=== PATIENT | male | born 1940 | race Caucasian/White ===

== ENCOUNTER 2016-05-24 16:47 | Inpatient (IN) | payer MEDICARE, BC ==
[~2016-05-24] VITALS: Ht 182.9 cm; Wt 111.6 kg
[~2016-05-24 16:47] MED LIST: AMOX1TAB15 PO; ESCI20TA PO; FENO145T PO; LISI10TA5 PO
[2016-05-24 17:43] LABS: CALCIUM, SERUM 9.2 mg/dL (8.5-10.1); CREATININE 1.5 mg/dL (0.6-1.3); POTASSIUM 4.5 mmol/L (3.5-5.1)
[2016-05-24 17:49] LABS: ALBUMIN 3.9 g/dL (3.4-5.0); BILIRUBIN,DIRECT 0.1 mg/dL (0.0-0.2); BILIRUBIN,TOTAL 0.7 mg/dL (0.2-1.0); INDIRECT BILIRUBIN 0.6 mg/dL (0.0-1.1); TOTAL PROTEIN, SERUM 7.9 g/dL (6.4-8.2)
[2016-05-24 17:58] LABS: BASOPHILS % (AUTO) 0.4 % (0.0-2.0); DIFF TOTAL % 100 %; HEMATOCRIT 49 % (39-51); HEMOGLOBIN 16.3 g/dL (13.5-17.5); LYMPHOCYTES # (AUTO) 0.7 /CMM (0.8-4.8); LYMPHOCYTES % (AUTO) 9.3 % (20.0-44.0); MEAN CORPUSCULAR HEMOGLOBIN 31 PG (26.0-33.0); MEAN CORPUSCULAR HGB CONC 33 g/dl (31.0-36.0); MEAN CORPUSCULAR VOLUME 92 fL (80-96); MONOCYTES # (AUTO) 0.6 /CMM (0.1-1.30); NEUTROPHILS # (AUTO) 6.6 /CMM (1.8-8.9); NEUTROPHILS % (AUTO) 83.3 % (43.0-81.0); PLATELET COUNT (AUTO) 130 /CMM (150-450); RED BLOOD CELL COUNT(AUTO) 5.31 MIL/uL (4.5-6.0); WHITE BLOOD COUNT (AUTO) 7.9 K/uL (4.3-11.0)
[2016-05-24 18:13] LABS: INR 0.98 (0.87-1.13); PROTHROMBIN TIME 10.6 SECS (9.5-12.7)
[2016-05-24] MEDS ORDERED: ONDANSETRON HCL/PF 4 MG/2 ML VIAL ONE (18:47)
[2016-05-24] MEDS ORDERED: MAG HYDROX/AL HYDROX/SIMETH 30 ML UDC ONE (18:47)
[2016-05-24] MEDS ORDERED: BELLADONNA /PHENOBARB 5 ML UDC 5 ML UDC ONE (18:47)
[2016-05-24] MEDS ORDERED: MORPHINE SULFATE INJ 4 MG/ML DISP.SYRIN ONE (18:47)
[2016-05-24] MEDS ORDERED: LIDOCAINE VISCOUS 2% UD 15 ML UDC ONE (18:47)
[2016-05-24] MEDS ORDERED: IV NS 0.9% 1,000 ML ONE ×2 (18:47→23:37)
[2016-05-24] MEDS ORDERED: IV SET PRIMARY 1 EA INFUS.SET MC ONE (18:47)
[2016-05-24] MEDS ORDERED: LIDOCAINE VISCOUS 2% UD 15 ML UDC MM ONE (19:00)
[2016-05-24] MEDS ORDERED: BELLADONNA /PHENOBARB 5 ML UDC 5 ML UDC PO ONE (19:00)
[2016-05-24] MEDS ORDERED: IV NS 0.9% 1,000 ML BAG IV ONE ×2 (19:00→22:30)
[2016-05-24] MEDS ORDERED: MAG HYDROX/AL HYDROX/SIMETH 30 ML UDC PO ONE (19:00)
[2016-05-24] MEDS ORDERED: ONDANSETRON HCL/PF 4 MG/2 ML VIAL IVP ONE (19:00)
[2016-05-24] MEDS ORDERED: MORPHINE SULFATE INJ 2 MG/ML DISP.SYRIN IV ONE (19:00)
[2016-05-24] MEDS ORDERED: DILTIAZEM HCL 25 MG IV ONE (19:56)
[2016-05-24] MEDS ORDERED: DILTIAZEM HCL 50 MG IV IV ONE (20:00)
[2016-05-24] MEDS ORDERED: MAGNESIUM HYDROXIDE 30 ML UDC PO PRN (21:00)
[2016-05-24] MEDS ORDERED: MAG HYDROX/AL HYDROX/SIMETH 30 ML UDC PO PRN ×2 (21:00→21:15)
[2016-05-24] MEDS ORDERED: ACETAMINOPHEN 325 MG TABLET PO PRN ×2 (21:00→21:15)
[2016-05-24] MEDS ORDERED: Z GUARD REMEDY 2 OZ OINT TP PRN ×2 (21:00→21:15)
[2016-05-24] MEDS ORDERED: HYDROCODONE/APAP 5/325MG 1 EACH TABLET PO PRN ×2 (21:00→21:15)
[2016-05-24] MEDS ORDERED: ONDANSETRON HCL/PF 4 MG/2 ML VIAL IVP PRN ×2 (21:00→21:15)
[2016-05-24] MEDS ORDERED: ZOLPIDEM TARTRATE 5 MG TABLET PO PRN ×2 (21:00→21:15)
[2016-05-24 21:30] VITALS: BP 150/90
[2016-05-24 22:00] VITALS: BP 150/90
[2016-05-24] MEDS ORDERED: LISINOPRIL (10MG) 10 MG TABLET ONE (22:00)
[2016-05-24] MEDS ORDERED: FENOFIBRATE NANOCRYS (145 MG) 145 MG TABLET ONE (22:01)
[2016-05-24] MEDS ORDERED: IV SET PRIMARY PUMP SET 1 EA INFUS.SET MC ONE (23:38)
[2016-05-24] MEDS: DILTIAZEM HCL 30 MG TABLET PO SCH (23:56)
[2016-05-25] VITALS (8 sets, daily range): BP systolic 114–171; BP diastolic 73–91
[2016-05-25] MEDS ORDERED: DILTIAZEM HCL 30 MG TABLET ONE (05:29)
[2016-05-25] MEDS: DILTIAZEM HCL 30 MG TABLET PO SCH (05:47)
[2016-05-25 06:43] LABS: BASOPHILS % (AUTO) 0.3 % (0.0-2.0); DIFF TOTAL % 100 %; HEMATOCRIT 45 % (39-51); HEMOGLOBIN 15.2 g/dL (13.5-17.5); LYMPHOCYTES # (AUTO) 1.1 /CMM (0.8-4.8); LYMPHOCYTES % (AUTO) 13.6 % (20.0-44.0); MEAN CORPUSCULAR HEMOGLOBIN 31 PG (26.0-33.0); MEAN CORPUSCULAR HGB CONC 34 g/dl (31.0-36.0); MEAN CORPUSCULAR VOLUME 93 fL (80-96); MONOCYTES # (AUTO) 0.8 /CMM (0.1-1.30); MONOCYTES % (AUTO) 10.4 % (2.0-12.0); NEUTROPHILS # (AUTO) 5.9 /CMM (1.8-8.9); NEUTROPHILS % (AUTO) 75.7 % (43.0-81.0); PLATELET COUNT (AUTO) 130 /CMM (150-450); RED BLOOD CELL COUNT(AUTO) 4.87 MIL/uL (4.5-6.0); WHITE BLOOD COUNT (AUTO) 7.8 K/uL (4.3-11.0)
[2016-05-25 07:11] LABS: CALCIUM, SERUM 8.4 mg/dL (8.5-10.1); CREATININE 1.3 mg/dL (0.6-1.3)
[2016-05-25] MEDS ORDERED: AMIODARONE 900 MG in IV D5W 500 ML IV PRN (08:00)
[2016-05-25] MEDS ORDERED: AMIODARONE 150 MG in IV D5W 100 ML IV ONE (08:30)
[2016-05-25 08:37] LABS: TROPONIN I < 0.017 ng/mL (0.00-0.056)
[2016-05-25 08:42] LABS: CHOLESTEROL 179 mg/dL (<200); HDL CHOLESTEROL 33 mg/dL (40-60); LDL 136 mg/dL (0-99); THYROID STIMULATING HORMONE 1.156 uIU/mL (0.358-3.74); TRIGLYCERIDES 73 mg/dL (30-150)
[2016-05-25] MEDS ORDERED: IV SET PRIMARY PUMP SET 1 EA INFUS.SET MC ONE (08:47)
[2016-05-25] MEDS ORDERED: SECONDARY IV SET 1 EA INFUS.SET MC ONE (08:47)
[2016-05-25] MEDS ORDERED: AMIODARONE 900 MG in IV D5W 482 ML IV PRN (10:00)
[2016-05-25] MEDS: Magnesium 1GM/D5W 100ML PREMIX 100 ML IV SCH ×2 (10:02→11:20)
[2016-05-25] MEDS: LISINOPRIL (10MG) 10 MG TABLET PO SCH (10:02)
[2016-05-25] MEDS: FENOFIBRATE NANOCRYS (145 MG) 145 MG TABLET PO SCH (10:49)
[2016-05-25] MEDS ORDERED: Magnesium 1GM/D5W 100ML PREMIX 100 ML IV SCH (12:30)
[2016-05-25] MEDS: PANTOPRAZOLE 40 MG VIAL IV SCH ×2 (13:36→16:22)
[2016-05-25] MEDS: IV NS 0.9% 1,000 ML IV PRN (13:36)
[2016-05-25] MEDS: ACETYLCYSTEINE 10% SOLN 400 MG/4 ML VIAL PO SCH ×2 (15:55→20:06)
[2016-05-25] MEDS ORDERED: IV NS 0.9% 250 ML IV ONE (16:17)
[2016-05-25] MEDS ORDERED: IOHEXOL-350 100 ML VIAL IV ONE (16:17)
[2016-05-25] MEDS: RIVAROXABAN 10 MG TABLET PO SCH (16:22)
[2016-05-25] MEDS ORDERED: NEUTRA PHOS 1 POWD.PACKET NG ONE (16:30)
[2016-05-26] VITALS: BP_SYST 157; BP_DIAS 49; BP_DIAS 79
[2016-05-26] MEDS: IV NS 0.9% 1,000 ML IV PRN (01:59)
[2016-05-26 04:00] VITALS: BP 157/100
[2016-05-26] MEDS: ACETYLCYSTEINE 10% SOLN 400 MG/4 ML VIAL PO SCH ×3 (04:38→21:35)
[2016-05-26] MEDS: MAGNESIUM HYDROXIDE 30 ML UDC PO PRN (04:57)
[2016-05-26 07:22] LABS: BASOPHILS % (AUTO) 0.4 % (0.0-2.0); DIFF TOTAL % 100 %; EOSINOPHILS % (AUTO) 0.1 % (0.0-6.0); HEMATOCRIT 46 % (39-51); HEMOGLOBIN 15.1 g/dL (13.5-17.5); LYMPHOCYTES # (AUTO) 1.1 /CMM (0.8-4.8); LYMPHOCYTES % (AUTO) 12.7 % (20.0-44.0); MEAN CORPUSCULAR HEMOGLOBIN 30 PG (26.0-33.0); MEAN CORPUSCULAR HGB CONC 33 g/dl (31.0-36.0); MEAN CORPUSCULAR VOLUME 92 fL (80-96); MONOCYTES % (AUTO) 11.8 % (2.0-12.0); NEUTROPHILS # (AUTO) 6.2 /CMM (1.8-8.9); PLATELET COUNT (AUTO) 119 /CMM (150-450); RED BLOOD CELL COUNT(AUTO) 5.01 MIL/uL (4.5-6.0); WHITE BLOOD COUNT (AUTO) 8.3 K/uL (4.3-11.0)
[2016-05-26 07:38] LABS: TROPONIN I < 0.017 ng/mL (0.00-0.056)
[2016-05-26 07:41] LABS: ALANINE AMINOTRANSFERASE 19 U/L (12-78); ALBUMIN 3.3 g/dL (3.4-5.0); ANION GAP 12 (5-14); ASPARTATE AMINOTRANSFERASE 19 U/L (15-37); CALCIUM, SERUM 8.4 mg/dL (8.5-10.1); CARBON DIOXIDE 30 mmol/L (21-32); CHLORIDE 103 mmol/L (98-107); CREATININE 1.4 mg/dL (0.6-1.3); GLUCOSE 135 mg/dL (74-106); PHOSPHORUS 2.1 mg/dL (2.5-4.9); SODIUM SERUM 140 mmol/L (136-145); TOTAL PROTEIN, SERUM 7.1 g/dL (6.4-8.2); UREA NITROGEN, BLOOD 12 mg/dL (7-18)
[2016-05-26 08:00] VITALS: BP 152/98
[2016-05-26] MEDS: PANTOPRAZOLE 40 MG VIAL IV SCH ×2 (08:22→16:18)
[2016-05-26] MEDS: FENOFIBRATE NANOCRYS (145 MG) 145 MG TABLET PO SCH (08:22)
[2016-05-26] MEDS: LISINOPRIL (10MG) 10 MG TABLET PO SCH (08:23)
[2016-05-26] MEDS ORDERED: NEUTRA PHOS 1 POWD.PACKET PO ONE (10:00)
[2016-05-26] MEDS: DILTIAZEM HCL CD 240 MG PO SCH (11:10)
[2016-05-26 12:00] VITALS: BP 157/88
[2016-05-26 14:59] LABS: KETONES,URINE NEGATIVE (NEGATIVE); LEUKOCYTE ESTERASE ,URINE NEGATIVE (NEGATIVE)
[2016-05-26 15:04] LABS: ADD UA MICROSCOPIC YES
[2016-05-26 15:08] LABS: CREATININE, URINE 68.4 MG/DL (30.0-125.0)
[2016-05-26 15:13] LABS: ADD URINE CULTURE NO; RBC,URINE 0-2 /HPF (0-2); WBC,URINE 0-2 /HPF (0-3)
[2016-05-26 16:00] VITALS: BP 129/79
[2016-05-26] MEDS: RIVAROXABAN 10 MG TABLET PO SCH (16:19)
[2016-05-26 20:00] VITALS: BP 134/78
[2016-05-26] MEDS: ESCITALOPRAM OXALATE (10 MG) 10 MG TABLET PO SCH (21:34)
[2016-05-27] VITALS: BP 132/65
[2016-05-27] MEDS: IV NS 0.9% 1,000 ML IV PRN ×2 (03:51→15:25)
[2016-05-27 04:00] VITALS: BP 126/68
[2016-05-27] MEDS: ACETYLCYSTEINE 10% SOLN 400 MG/4 ML VIAL PO SCH (05:21)
[2016-05-27 06:58] LABS: BASOPHILS % (AUTO) 0.3 % (0.0-2.0); DIFF TOTAL % 100 %; EOSINOPHILS % (AUTO) 0.7 % (0.0-6.0); HEMATOCRIT 43 % (39-51); HEMOGLOBIN 14.3 g/dL (13.5-17.5); LYMPHOCYTES # (AUTO) 1.4 /CMM (0.8-4.8); LYMPHOCYTES % (AUTO) 19.5 % (20.0-44.0); MEAN CORPUSCULAR HEMOGLOBIN 31 PG (26.0-33.0); MEAN CORPUSCULAR HGB CONC 33 g/dl (31.0-36.0); MEAN CORPUSCULAR VOLUME 92 fL (80-96); NEUTROPHILS # (AUTO) 4.6 /CMM (1.8-8.9); NEUTROPHILS % (AUTO) 65.5 % (43.0-81.0); PLATELET COUNT (AUTO) 117 /CMM (150-450); RED BLOOD CELL COUNT(AUTO) 4.68 MIL/uL (4.5-6.0)
[2016-05-27 07:41] LABS: ALBUMIN 3.2 g/dL (3.4-5.0); CALCIUM, SERUM 8.4 mg/dL (8.5-10.1); CREATININE 1.5 mg/dL (0.6-1.3); PHOSPHORUS 2.5 mg/dL (2.5-4.9); POTASSIUM 4.4 mmol/L (3.5-5.1); TOTAL PROTEIN, SERUM 6.7 g/dL (6.4-8.2)
[2016-05-27 08:00] VITALS: BP_SYST 131; BP_DIAS 80; BP_DIAS 81
[2016-05-27] MEDS: LISINOPRIL (10MG) 10 MG TABLET PO SCH (08:32)
[2016-05-27] MEDS: PANTOPRAZOLE 40 MG VIAL IV SCH ×2 (08:32→16:48)
[2016-05-27] MEDS: FENOFIBRATE NANOCRYS (145 MG) 145 MG TABLET PO SCH (08:33)
[2016-05-27] MEDS: DILTIAZEM HCL CD 240 MG PO SCH (08:33)
[2016-05-27 16:00] VITALS: BP 116/63
[2016-05-27] MEDS: RIVAROXABAN 10 MG TABLET PO SCH (16:49)
[2016-05-27 20:00] VITALS: BP_SYST 126; BP_SYST 128; BP_DIAS 69
[2016-05-27] MEDS: MAGNESIUM HYDROXIDE 30 ML UDC PO PRN (20:19)
[2016-05-27] MEDS: ESCITALOPRAM OXALATE (10 MG) 10 MG TABLET PO SCH (21:32)
[2016-05-28] MEDS: IV NS 0.9% 1,000 ML IV PRN (02:17)
[2016-05-28 04:00] VITALS: BP 143/88
[2016-05-28 06:17] LABS: BASOPHILS % (AUTO) 0.5 % (0.0-2.0); DIFF TOTAL % 100 %; EOSINOPHILS # (AUTO) 0.1 /CMM (0.0-0.7); EOSINOPHILS % (AUTO) 1.7 % (0.0-6.0); HEMATOCRIT 40 % (39-51); HEMOGLOBIN 13.4 g/dL (13.5-17.5); LYMPHOCYTES # (AUTO) 1.6 /CMM (0.8-4.8); LYMPHOCYTES % (AUTO) 22.9 % (20.0-44.0); MEAN CORPUSCULAR HEMOGLOBIN 31 PG (26.0-33.0); MEAN CORPUSCULAR HGB CONC 34 g/dl (31.0-36.0); MEAN CORPUSCULAR VOLUME 92 fL (80-96); MONOCYTES # (AUTO) 0.9 /CMM (0.1-1.30); NEUTROPHILS # (AUTO) 4.4 /CMM (1.8-8.9); NEUTROPHILS % (AUTO) 61.9 % (43.0-81.0); PLATELET COUNT (AUTO) 118 /CMM (150-450); RED BLOOD CELL COUNT(AUTO) 4.36 MIL/uL (4.5-6.0); WHITE BLOOD COUNT (AUTO) 7.1 K/uL (4.3-11.0)
[2016-05-28 06:29] LABS: CALCIUM, SERUM 8.3 mg/dL (8.5-10.1); CREATININE 1.6 mg/dL (0.6-1.3); PHOSPHORUS 2.8 mg/dL (2.5-4.9); POTASSIUM 4.5 mmol/L (3.5-5.1)
[2016-05-28 08:00] VITALS: BP 133/73
[2016-05-28] MEDS: FENOFIBRATE NANOCRYS (145 MG) 145 MG TABLET PO SCH (08:32)
[2016-05-28] MEDS: PANTOPRAZOLE 40 MG VIAL IV SCH (08:32)
[2016-05-28 08:33] VITALS: BP 133/73
[2016-05-28] MEDS: DILTIAZEM HCL CD 240 MG PO SCH (08:33)
[2016-05-28] MEDS: LISINOPRIL (10MG) 10 MG TABLET PO SCH (08:33)
[2016-05-28] MEDS ORDERED: DILT240C88 PO (10:58)
[2016-05-28] MEDS ORDERED: RIVA10TA PO (11:18)
== END 2016-05-28 12:34 | disposition home or self-care (01) | DRG 308 ==
LOC: ER 16:50 → TELE 21:02 → TELE-TD 05-25 08:11 → TELE1 05-26 10:57 → MEDSG1 05-27 08:40
PROVIDERS: ADMIT Family Medicine; ATTEND Family Medicine
DX: I48.91 Unspecified atrial fibrillation (principal); N17.0 Acute kidney failure with tubular necrosis; J44.1 Chronic obstructive pulmonary disease with (acute) exacerbation; D68.59 Other primary thrombophilia; I12.9 Hypertensive chronic kidney disease with stage 1 through stage 4 chronic kidney disease, or unspecified chronic kidney disease; F32.9 Major depressive disorder, single episode, unspecified; J44.9 Chronic obstructive pulmonary disease, unspecified; E83.42 Hypomagnesemia; N18.9 Chronic kidney disease, unspecified; Z90.49 Acquired absence of other specified parts of digestive tract; Z87.891 Personal history of nicotine dependence; K21.9 Gastro-esophageal reflux disease without esophagitis; E78.5 Hyperlipidemia, unspecified; K57.30 Diverticulosis of large intestine without perforation or abscess without bleeding; Z79.01 Long term (current) use of anticoagulants
CPT/HCPCS: 36415; 71010-TC; 80048-TC; 80053-TC; 80061-TC; 80076-TC; 81000-TC; 82306; 82570-TC; 83690-TC; 83735-TC; 84100-TC; 84300-TC; 84439-TC; 84443-TC; 84484-TC; 85025-TC; 85730-TC; 87081-TC; 93307-TC; A4606; A6253; C9113; J0282; J2270; J2405; J3475; J3490; J7030; J7050; J7060; Q9967; Z7610